=== PATIENT | female | born 1960 ===

== ENCOUNTER 2021-03-10 10:26 | Outpatient (REF) | payer MEDICARE, SELFPAY | END 2021-03-10 10:27 | disposition home or self-care (01) | LOC: HO.SCI 10:26 | PROVIDERS: Visit Provider Registered Nurse | DX: Z13.89 Encounter for screening for other disorder (principal) ==

== ENCOUNTER 2021-04-06 17:51 | Emergency (ER) | payer MEDICARE, SELFPAY ==
[2021-04-06 18:12] VITALS: BP 108/60; PULSE 76; RESP 16; TEMP 37.1; O2SAT 96; BMI 30.9
--- NOTE | 2021-04-06 18:33 | ED_ITS ---
HPI - Extremity Problem General Chief complaint: Extremity Problem Stated complaint: ?infection Time Seen by Provider: 04/06/21 18:27 Source: patient Mode of arrival: ambulatory Limitations: no limitations History of Present Illness HPI Narrative: 60-year-old female here with complaints of red area to her wrist with local swelling and redness. She noticed a small area several days ago and this morning when she woke up she noticed some streaking up her arm in became concerned and that is why she came into the emergency department. No fevers or chills or paresthesias. Does not recall any bug bite or injury. she does tell me that she has dry skin and often scratches and she is concerned that she may have been scratching at the site and caused it to be open which cause bacteria to enter into the scant Related Data Previous Rx's Medication Instructions Recorded doxycycline monohydrate 100 mg PO BID #20 tab 04/06/21 Allergies Allergy/AdvReac Type Severity Reaction Status Date / Time lamotrigine [From Lamictal] Allergy Hives Verified 04/06/21 18:31 acetaminophen AdvReac Nausea and Verified 04/06/21 18:31 [From Tylenol-Codeine] Vomiting codeine AdvReac Nausea and Verified 04/06/21 18:31 [From Tylenol-Codeine] Vomiting Review of Systems Review of Systems: Yes all other systems are reviewed and are negative Constitutional: Constitutional: Reports no additional constitutional complaints, Denies body ache(s), Denies chills, Denies fever(s), Denies headache(s) and Denies weakness Eyes: Eyes: Reports no additional eye complaints and Denies change in vision ENT: Reports system reviewed and no additional complaints, except as do cumented, Denies dizziness, Denies headache(s), Denies nasal congestion, Denies nasal discharge and Denies neck pain Cardiovascular: Cardiovascular: Reports no additional cardiovascular complaints, Denies chest pain, Denies leg edema and Denies dyspnea Respiratory: Respiratory: Reports no additional respiratory complaints, Denies cough and Denies dyspnea Gastrointestinal: Gastrointestinal: Reports no additional gastrointestinal complaints, Denies abdominal pain, Denies diarrhea, Denies nausea and Denies vomiting Genitourinary: Genitourinary: Reports no additional female genitourinary complaints and Denies urinary incontinence Musculoskeletal: Musculoskeletal: Reports no additional musculoskeletal complaints, Denies back pain, Denies arthralgias, Denies joint swelling, Denies neck pain, Denies numbness and Denies tingling Integumentary/Breasts: Skin/Breast: Reports system reviewed and no additional complaints, except as docu, Reports swelling, Reports erythema and Denies rash Neurologic: Reports system reviewed and no additional complaints, except as documented, Denies Abnormal speech present, Denies dizziness, Denies headache(s), Denies numbness, Denies tingling and Denies weakness PMF Past Medical History Attestation statement: The following information was validated with the patient. Source: old records reviewed and nursing notes reviewed Social History Social History Advance Directives: No Advance Directives Information Provided: No Patient : No Physical Exam Vital Signs: Vital Signs: Last Vital Signs Temp 98.8 F 04/06/21 18:12 Pulse 76 04/06/21 18:12 Resp 16 04/06/21 18:12 BP 108/60 04/06/21 18:12 Pulse Ox 96 04/06/21 18:12 Body Mass Index 30.9 Const: General: cooperative, healthy appearing, comfortable and no acute distress Orientation/consciousness: patient oriented x3 Limitations: no limitations HENMT: Head: Yes normal to inspection Ears: hearing grossly normal bilaterally General nose exam: Normal external nose present Face and sinus: Yes normal facial exam Mouth: Normal oral and palatal mucosa present Throat: Yes posterior oropharynx normal Eyes: General: appearance normal, both eyes and all related structures Pupils: Equal, round and reactive pupils present Neck: Neck: Yes normal visual inspection Chest: Chest palpation & inspection: normal inspection of the chest Resp: Effort & Inspection: normal respiratory effort Auscultation: clear to auscultation bilaterally Cardio: Rate: regular rate Rhythm: regular rhythm Peripheral pulses: Peripheral pulses 2+ throughout GI: Inspection: Yes normal to inspection Palpation (GI): Soft to palpation and nontender Auscultation: normal bowel sounds Back/Spine/Pelvis: Thoracic/Lumbar Spine: thoracic and lumbar spine normal to inspection Skin: General skin exam: no rashes or lesions noted Neuro: General: patient oriented x3, no focal motor deficits and normal sensation to monofilament Cranial nerves: Yes Equal, round and reactive pupils present Cognition (Neuro): normal cognition Speech: No Abnormal speech present Gait exam (Neuro): Normal gait present Motor exam (neuro): 5/5 motor strength present throughout Extrem: Other: to the distal volar wrist there is a approximately 1 centimetre circular area of redness and crusting with streaking up the arm. There is no circumferential redness. No pain with flexion or extension of the wrist. No paresthesias. General: Yes normal to inspection Course Course Course Narrative: Local cellulitis to the right upper extremity. No systemic signs or symptoms concerning for infection. Patient will be treated with course of antibiotics. Reviewed worrisome signs and symptoms and when to return to the emergency department. Comfortable discharge home. MDM - Extremity (Nontraumatic) Medical Records Attestation: I reviewed the patient's medical records. Lab Data Attestation: I reviewed the patient's lab results. Discharge Plan Discharge Clinical Impression: Cellulitis Patient Disposition: Home, Self-Care Instructions: Cellulitis (ED) Additional Instructions: return for increasing redness, difficulty moving the wrist, fever greater than 100.4 Prescriptions: New doxycycline monohydrate 100 mg tablet 100 mg PO BID Qty: 20 RF: 0 Referrals: Physician,Unknown [Primary Care Provider] - 2 days Interventions: ED Discharge Assessment Last Done: 04/06/21 18:38 Discharge Date/Time: 04/06/21 18:45
== END 2021-04-06 18:45 | disposition home or self-care (01) ==
LOC: HO.ED 18:42
PROVIDERS: Emergency Provider Emergency Medicine
DX: L03.113 Cellulitis of right upper limb (principal)
CPT/HCPCS: 99283